=== PATIENT | female | born 1945 | race Caucasian/White ===

== ENCOUNTER → 2017-11-13 | Outpatient (CLI) | payer MEDICARE, OTHER | LOC: M.RAD 13:55 | DX: Z12.31 Encounter for screening mammogram for malignant neoplasm of breast (principal) ==

== ENCOUNTER → 2018-11-13 | Outpatient (CLI) | payer MEDICARE, OTHER | LOC: M.RAD 10:26 | DX: Z12.31 Encounter for screening mammogram for malignant neoplasm of breast (principal) ==

== ENCOUNTER → 2019-04-01 | Outpatient (CLI) | payer MEDICARE, OTHER | LOC: M.RAD 15:07 | DX: Z13.820 Encounter for screening for osteoporosis (principal); Z78.0 Asymptomatic menopausal state ==

== ENCOUNTER → 2019-12-02 | Outpatient (CLI) | payer MEDICARE, OTHER | LOC: M.RAD 07:50 | PROVIDERS: ATTEND Nurse Practitioner Family | DX: Z12.31 Encounter for screening mammogram for malignant neoplasm of breast (principal) ==

== ENCOUNTER → 2021-01-24 | Outpatient (CLI) | payer MEDICARE, OTHER | LOC: M.RAD 14:55 | PROVIDERS: ATTEND Nurse Practitioner Family | DX: Z12.31 Encounter for screening mammogram for malignant neoplasm of breast (principal) ==